=== PATIENT | female | born 1990 | race Caucasian/White ===

== ENCOUNTER → 2017-05-19 | Outpatient (CLI) | payer MEDICAID ==
[~2017-05-19] MED LIST: IRON TABLETS325 MG PO; LASIX 20MG. TAB20 MG PO; PRENATAL PLUS1 TA1 PO
--- NOTE | 2017-05-19 15:33 | RADIOLOGY REPORT PS360 ---
US PELVIS-TRANSVAGINAL ONLY HISTORY: PELVIC PAIN ORDERING PHYSICIAN: Delvin Boston MD PATIENT AGE: 27 years COMPARISON: None FINDINGS: The uterus measures 9 x 4 x 6 cm with a combined endometrial thickness of 7 mm. There is a linear area of increased echogenicity within the endometrial canal consistent with an IUD. No uterine mass evident. The right ovary is 3 x 2 cm and has an unremarkable appearance. The left ovary is 2.7 x 1.5 cm and has an unremarkable appearance. No cul-de-sac fluid evident. There is bilateral ovarian blood flow present. IMPRESSION: IUD in place. Otherwise negative pelvic ultrasound.
== END ==
LOC: RAD 14:26
DX: R10.2 Pelvic and perineal pain (principal)